=== PATIENT | male | born 1990 | race Caucasian/White ===

== ENCOUNTER 2017-02-08 21:44 | Emergency (ER) | payer OTHER ==
[2017-02-08] MEDS ORDERED: NS 1,000 ML IV ONE (22:04)
[2017-02-08] MEDS ORDERED: ONDANSETRON 4 MG/2 ML VIAL IVP ONE (22:04)
--- NOTE | 2017-02-08 22:04 | EDPHY ---
H & P Stated Complaint: feels disoriented, slight abd pain, nausea after eating mushrooms HPI/ROS: HPI CHIEF COMPLAINT: Nausea, abdominal cramping after eating mushrooms HISTORY OF PRESENT ILLNESS: This patient 27-year-old male, otherwise healthy, he presents emergency room after he ingested mushrooms from a [employer]. He states that he had a salad with mushrooms in it around 5 p.m. patient reports around 530 started getting nauseous felt a little disoriented and had some abdominal cramping. No vomiting no diarrhea no fever. Pain is abdomen is not intense. He denies diaphoresis denies hallucination denies being off balance. It is now close to 5 hours later and he is feeling better. Decided come the emergency room just to make sure he was not poisoned. He did bring mushrooms with him and there is a constellation of mushrooms various shapes sizes and appearances. I do not see any toxic mushroom. Patient is unsure if he even wash the mushrooms prior to eating them. Past Medical History: Asthma Past Surgical History: No significant surgical history Social History: Denies daily use drugs alcohol tobacco products. Family History: Noncontributory ROS REVIEW OF SYSTEMS: A comprehensive 10 point review of systems is otherwise negative aside from elements mentioned in the history of present illness. Exam Constitutional appears well nontoxic triage nursing summary reviewed, vital signs reviewed, awake/alert. Eyes normal conjunctivae and sclera, EOMI, PERRLA. HENT normal inspection, atraumatic, moist mucus membranes, no epistaxis, neck supple/ no meningismus, no raccoon eyes. Respiratory clear to auscultation bilaterally, normal breath sounds, no respiratory distress, no wheezing. Cardiovascular rate normal, regular rhythm, no murmur, no edema, distal pulses normal. Gastrointestinal soft, non-tender, no rebound, no guarding, normal bowel sounds, no distension, no pulsatile mass. Genitourinary no CVA tenderness. Musculoskeletal no midline vertebral tenderness, full range of motion, no calf swelling, no tenderness of extremities, no meningismus, good pulses, neurovascularly intact. Skin pink, warm, & dry, no rash, skin atraumatic. Neurologic awake, alert and oriented x 3, AAOx3, moves all 4 extremities equally, motor intact, sensory intact, CN II-XII intact, normal cerebellar, normal vision, normal speech. Psychiatric normal mood/affect. Heme/Lymph/Immune no lymphadenopathy. Differential Diagnosis: Includes but is not limited to in a particular order electrolyte disturbance, dehydration, food borne illness, toxic mushroom ingestion Medical Decision Making: This patient appears well nontoxic no acute distress not hallucinating is not diaphoretic and has stable vital signs plan for this patient will be IV establishment IV fluid bolus and Zofran check blood work and electrolytes and re-evaluate. Re-evaluation: 1246AM: This patient is requesting discharge. He tells me feels much better after IV fluids and Zofran. He has not had any vomiting here. His vital signs have been stable. His blood work is unremarkable. I do recommend he throws out the mushrooms and does not eat them. I did give him return precautions he understands return emergency room if develops any worsening symptoms this includes fever, vomiting, abdominal pain or questions or concerns. Source: Patient - Personal History Current Tetanus/Diphtheria Vaccine: Yes - Medical/Surgical History Hx Asthma: Yes Hx Chronic Respiratory Disease: No Hx Diabetes: No Hx Cardiac Disease: No Hx Renal Disease: No Hx Cirrhosis: No Hx Alcoholism: No Hx HIV/AIDS: No Hx Splenectomy or Spleen Trauma: No Other PMH: Asthma - Social History Smoking Status: Never smoked Constitutional: Initial Vital Signs Temperature (C) 37.3 C 02/08/17 21:47 Heart Rate 60 02/08/17 21:47 Respiratory Rate 16 02/08/17 21:47 Blood Pressure 146/110 H 02/08/17 21:47 O2 Sat (%) 96 02/08/17 21:47 O2 Delivery Mode Room Air Allergies/Adverse Reactions: No Known Allergies Allergy (Unverified 02/08/17 21:51) Home Medications: Medication Instructions Recorded Albuterol 5 mg/ml INH [Proventil] 2.5 mg IH PRN PRN 02/08/17 Montelukast Sodium 10 mg PO 02/08/17 Medical Decision Making - Data Points Laboratory Results: Laboratory Results 02/08/17 22:20 02/08/17 22:20 02/08/17 02/08/17 02/08/17 23:10 22:30 22:20 WBC RBC Hgb Hct MCV MCH MCHC RDW Plt Count MPV Neut % (Auto) Lymph % (Auto) [place] % (Auto) Eos % (Auto) Baso % (Auto) Nucleat RBC Rel Count Absolute Neuts (auto) Absolute Lymphs (auto) Absolute Monos (auto) Absolute Eos (auto) Absolute Basos (auto) Absolute Nucleated RBC Immature Gran % Immature Gran # PT INR APTT VBG Lactic Acid 0.8 mmol/L mmol/L (0.7-2.1) Sodium 137 mEq/L mEq/L (134-144) Potassium 3.9 mEq/L mEq/L (3.5-5.2) Chloride 99 mEq/L mEq/L (97-110) Carbon Dioxide 23 mEq/l mEq/l (22-31) Anion Gap 15 mEq/L mEq/L (8-16) BUN 14 mg/dL mg/dL (7-23) Creatinine 0.8 mg/dL mg/dL (0.7-1.3) Estimated GFR > 60 Glucose 86 mg/dL mg/dL (70-100) Calcium 10.3 mg/dL mg/dL (8.5-10.4) Total Bilirubin 0.7 mg/dL mg/dL (0.1-1.4) Conjugated Bilirubin 0.3 mg/dL mg/dL (0.0-0.5) Unconjugated Bilirubin 0.4 mg/dL mg/dL (0.0-1.1) AST 27 IU/L IU/L (17-59) ALT 42 IU/L IU/L (21-72) Alkaline Phosphatase 74 IU/L IU/L (38-126) Total Protein 8.8 g/dL H g/dL (6.3-8.2) Albumin 5.2 g/dL H g/dL (3.5-5.0) Lipase 40.0 IU/L IU/L (23-300) Urine Color PALE YELLOW Urine Appearance CLEAR Urine pH 7.0 (5.0-7.5) Ur Specific [place] 1.006 (1.002-1.030) Urine Protein NEGATIVE (NEGATIVE) Urine Ketones TRACE H (NEGATIVE) Urine Blood NEGATIVE (NEGATIVE) Urine Nitrate NEGATIVE (NEGATIVE) Urine Bilirubin NEGATIVE (NEGATIVE) Urine Urobilinogen NEGATIVE EU EU (0.2-1.0) Ur Leukocyte Esterase NEGATIVE (NEGATIVE) Urine Glucose NEGATIVE (NEGATIVE) 02/08/17 02/08/17 22:20 22:20 WBC 7.05 10^3/uL 10^3/uL (3.80-9.50) RBC 4.99 10^6/uL 10^6/uL (4.40-6.38) Hgb 15.4 g/dL g/dL (13.7-17.5) Hct 44.3 % % (40.0-51.0) MCV 88.8 fL fL (81.5-99.8) MCH 30.9 pg pg (27.9-34.1) MCHC 34.8 g/dL g/dL (32.4-36.7) RDW 11.9 % % (11.5-15.2) Plt Count 298 10^3/uL 10^3/uL (150-400) MPV 10.7 fL fL (8.7-11.7) Neut % (Auto) 59.1 % % (39.3-74.2) Lymph % (Auto) 30.6 % % (15.0-45.0) [place] % (Auto) 7.8 % % (4.5-13.0) Eos % (Auto) 1.8 % % (0.6-7.6) Baso % (Auto) 0.4 % % (0.3-1.7) Nucleat RBC Rel Count 0.0 % % (0.0-0.2) Absolute Neuts (auto) 4.16 10^3/uL 10^3/uL (1.70-6.50) Absolute Lymphs (auto) 2.16 10^3/uL 10^3/uL (1.00-3.00) Absolute Monos (auto) 0.55 10^3/uL 10^3/uL (0.30-0.80) Absolute Eos (auto) 0.13 10^3/uL 10^3/uL (0.03-0.40) Absolute Basos (auto) 0.03 10^3/uL 10^3/uL (0.02-0.10) Absolute Nucleated RBC 0.00 10^3/uL 10^3/uL (0-0.01) Immature Gran % 0.3 % % (0.0-1.1) Immature Gran # 0.02 10^3/uL 10^3/uL (0.00-0.10) PT 13.4 SEC SEC (12.0-15.0) INR 1.03 (0.83-1.16) APTT 29.8 SEC SEC (23.0-38.0) VBG Lactic Acid Sodium Potassium Chloride Carbon Dioxide Anion Gap BUN Creatinine Estimated GFR Glucose Calcium Total Bilirubin Conjugated Bilirubin Unconjugated Bilirubin AST ALT Alkaline Phosphatase Total Protein Albumin Lipase Urine Color Urine Appearance Urine pH Ur Specific [place] Urine Protein Urine Ketones Urine Blood Urine Nitrate Urine Bilirubin Urine Urobilinogen Ur Leukocyte Esterase Urine Glucose Medications Given: Discontinued Medications Sodium Chloride (Ns) 1,000 mls @ 0 mls/hr IV EDNOW ONE; Wide Open PRN Reason: Protocol Stop: 02/08/17 22:05 Last Admin: 02/08/17 22:37 Dose: 1,000 mls Ondansetron HCl (Zofran) 4 mg IVP EDNOW ONE Stop: 02/08/17 22:05 Last Admin: 02/08/17 22:37 Dose: 4 mg Departure - Departure Disposition: Home, Routine, Self-Care Clinical Impression: Nausea Condition: Good Instructions: Food Poisoning (ED) Additional Instructions: 1. [place] diet for the next 24-48 hours. 2. Return emergency room if you have any worsening symptoms includes worsening abdominal pain, fever, vomiting you do not feel well. Stay well-hydrated drink lots of fluids. Referrals: NONE *PRIMARY CARE P,. [Primary Care Provider] - As per Instructions
[2017-02-08 22:30] LABS: % IMMATURE GRANULYOCYTES 0.3 % (0.0-1.1); ABSOLUTE IMMATURE GRANULOCYTES 0.02 10^3/uL (0.00-0.10); ADD DIFF? NO; ADD MORPH? NO; ADD SCAN? NO; ATYPICAL LYMPHOCYTE FLAG 10 (0-99); FRAGMENT RBC FLAG 0 (0-99); HEMATOCRIT 44.3 % (40.0-51.0); HEMOGLOBIN 15.4 g/dL (13.7-17.5); LEFT SHIFT FLG 0 (0-99); LIPEMIA HEMOLYSIS FLAG 90 (0-99); MEAN CELL HEMOGLOBIN 30.9 pg (27.9-34.1); MEAN CELL HEMOGLOBIN CONCENTR. 34.8 g/dL (32.4-36.7); MEAN CELL VOLUME 88.8 fL (81.5-99.8); MEAN PLATELET VOLUME 10.7 fL (8.7-11.7); PLATELET CLUMPS FLAG 20 (0-99); PLATELET COUNT 298 10^3/uL (150-400); RED BLOOD CELL COUNT 4.99 10^6/uL (4.40-6.38); RED CELL DISTRIBUTION WIDTH 11.9 % (11.5-15.2)
[2017-02-08 22:39] LABS: INR 1.03 (0.83-1.16); PROTIME(PATIENT) 13.4 SEC (12.0-15.0)
[2017-02-08 22:40] LABS: APTT 29.8 SEC (23.0-38.0)
[2017-02-08 22:42] LABS: ALANINE AMINOTRANSFERASE 42 IU/L (21-72); ALBUMIN 5.2 g/dL (3.5-5.0); ALKALINE PHOSPHATASE 74 IU/L (38-126); ANION GAP 15 mEq/L (8-16); ASPARTATE AMINOTRANSFERASE 27 IU/L (17-59); BILIRUBIN,TOTAL 0.7 mg/dL (0.1-1.4); BILIRUBIN-CONJUGATED 0.3 mg/dL (0.0-0.5); BILIRUBIN-UNCONJUGATED 0.4 mg/dL (0.0-1.1); CALCIUM 10.3 mg/dL (8.5-10.4); CARBON DIOXIDE 23 mEq/l (22-31); CHLORIDE 99 mEq/L (97-110); CREATININE 0.8 mg/dL (0.7-1.3); GLOMERULAR FILTRATION RATE > 60; GLUCOSE 86 mg/dL (70-100); POTASSIUM 3.9 mEq/L (3.5-5.2); SODIUM 137 mEq/L (134-144); TOTAL PROTEIN 8.8 g/dL (6.3-8.2)
[2017-02-08 22:57] VITALS: RESP 18
[2017-02-08 23:22] LABS: COLOR PALE YELLOW; LEUKOCYTE ESTERASE,URINE NEGATIVE (NEGATIVE); NITRITE,URINE NEGATIVE (NEGATIVE)
[2017-02-09 01:33] VITALS: BP 141/76; PULSE 61; TEMP 98.2; O2SAT 97
== END 2017-02-09 01:00 | disposition home or self-care (01) ==
DX: R11.0 Nausea (principal); J45.909 Unspecified asthma, uncomplicated; E86.9 Volume depletion, unspecified
CPT/HCPCS: 96374; J2405

== ENCOUNTER → 2017-04-18 | Outpatient (CLI) | payer OTHER | LOC: BMCIMAGING 09:18 | PROVIDERS: ATTEND Internal Medicine | DX: M54.42 Lumbago with sciatica, left side (principal); R93.7 Abnormal findings on diagnostic imaging of other parts of musculoskeletal system ==

== ENCOUNTER 2017-11-22 09:05 | Emergency (ER) | payer OTHER ==
[2017-11-22 09:13] VITALS: BP 151/81
[2017-11-22] MEDS ORDERED: TDAP ADULT 0.5 ML INJ (BOOSTRIX) IM ONE (09:21)
[2017-11-22] MEDS ORDERED: IBUPROFEN 600 MG TAB PO ONE (09:22)
[2017-11-22] MEDS ORDERED: ACETAMINOPHEN 325 MG TAB PO ONE (09:22)
--- NOTE | 2017-11-22 09:26 | EDPHY ---
H & P Time Seen by Provider: 11/22/17 09:05 HPI/ROS: CHIEF COMPLAINT: Dog bite HISTORY OF PRESENT ILLNESS: Patient was walking his girlfriend's alan when another person's pit bull ended up biting him in both left hand and the right leg. Brought in by EMS. Complaint pain in the area of the left hand in the right leg but no weakness or numbness distally. No foreign body sensation. No other injuries. REVIEW OF SYSTEMS: Eye: No visual symptoms ENT: Reason congestion and nonproductive cough, stayed at home from work yesterday. Cardiac: no chest pain or syncope Pulmonary: No shortness of breath Abdomen: No abdominal pain Musculoskeletal: HPI Skin: HPI Neuro: HPI no weakness or numbness Constitutional: no fever : no urinary symptoms A comprehensive 10 point review of systems is otherwise negative aside from elements mentioned in the history of present illness. PAST MEDICAL HISTORY: Asthma, depression, tetanus not up-to-date Social history: Nonsmoker, works in [employer], here with his girlfriend General Appearance: Alert and conversant, cooperative. Eyes: No scleral icterus. ENT, Mouth: Normal mucous membranes. Respiratory: Normal respiratory effort, breath sounds equal, lungs are clear to auscultation. Cardiovascular: Regular rate and rhythm. Gastrointestinal: Abdomen is soft and non tender. Neurological: Alert, face symmetric, normal motor and sensory in extremities. Skin: Multiple puncture wounds on the left hand including small ring middle and index fingers as well as dorsum of hand over the 1st and 2nd metacarpals. 8 cm laceration full thickness into the muscle on the right medial mid calf. No tendon laceration is visualized and no foreign body found on direct exploration. Musculoskeletal: No bony tenderness. Full range of motion of the left hand. Full extensor and flexor tendon function of the left hand, normal sensation, normal capillary refill. Normal range of motion of the right foot including Achilles function, normal dorsalis pedis pulse and motor and sensory. Psychiatric: Not agitated. Emergency Department course/MDM: X-ray of the left hand, Tylenol and ibuprofen for pain, standard wound care and tetanus updated. Right calf laceration I think is high risk for primary closure. Anesthetized with 20 mL of 0.5% bupivacaine with epinephrine, copiously irrigated, dressing placed and placed on oral Augmentin, will return in 72 hr for evaluation for possibility of delayed primary closure, patient consented. Smoking Status: Never smoked Constitutional: Initial Vital Signs Temperature (C) 37.1 C 11/22/17 09:05 Heart Rate 92 11/22/17 09:05 Respiratory Rate 16 11/22/17 09:05 Blood Pressure 151/81 H 11/22/17 09:05 O2 Sat (%) 96 11/22/17 09:05 O2 Delivery Mode Room Air Allergies/Adverse Reactions: No Known Allergies Allergy (Unverified 11/22/17 09:11) Home Medications: Medication Instructions Recorded Albuterol 5 mg/ml INH [Proventil] 2.5 mg IH PRN PRN 02/08/17 Montelukast Sodium 10 mg PO 02/08/17 Amoxicillin/Clavulanate Pot 875 mg PO BID #20 tab 11/22/17 [Augmentin 875 mg tab] Sertraline HCl [Zoloft 50mg (*)] 11/22/17 Medical Decision Making - Diagnostics Imaging Results: Imaging Impressions Hand X-Ray 11/22/17 09:22 Impression: There is no acute osseous abnormality, or radiopaque foreign body. Left hand x-ray personally interpreted is negative. Specifically no foreign body and no gas in joints. Imaging: I viewed and interpreted images myself - Data Points Medications Given: Discontinued Medications Acetaminophen (Tylenol) 650 mg PO EDNOW ONE Stop: 11/22/17 09:23 Last Admin: 11/22/17 09:34 Dose: 650 mg Amoxicillin/Clavulanate Potassium (Augmentin 875mg) 875 mg PO EDNOW ONE PRN Reason: Protocol Stop: 11/22/17 09:28 Last Admin: 11/22/17 09:34 Dose: 875 mg Diphtheria/Tetanus/Acell Pertussis (Boostrix) 0.5 ml IM .ONCE ONE Stop: 11/22/17 09:22 Last Admin: 11/22/17 09:34 Dose: 0.5 ml Ibuprofen (Motrin) 600 mg PO EDNOW ONE Stop: 11/22/17 09:23 Last Admin: 11/22/17 09:34 Dose: 600 mg Departure - Departure Disposition: Home, Routine, Self-Care Clinical Impression: Laceration of right calf without complication Qualifiers: Encounter type: initial encounter Qualified Code(s): S81.811A - Laceration without foreign body, right lower leg, initial encounter Dog bite of multiple sites of left hand and fingers Qualifiers: Encounter type: initial encounter Qualified Code(s): S61.452A - Open bite of left hand, initial encounter Condition: Good Instructions: Animal Bite (ED), Laceration (ED) Additional Instructions: Return to the emergency department in 72 hr on Monday morning for evaluation and possible delayed primary closure of your right leg. Referrals: Patient,NotPresent [Unknown] - As per Instructions Prescriptions: Amoxicillin/Clavulanate Pot [Augmentin 875 mg tab] 875 mg PO BID #20 tab
[2017-11-22] MEDS ORDERED: AMOXICILLIN/CLAVULANATE POT 875/125 MG TAB PO ONE (09:27)
== END 2017-11-22 10:15 | disposition home or self-care (01) ==
LOC: EDUNIT#
DX: S61.452A Open bite of left hand, initial encounter (principal); S81.811A Laceration without foreign body, right lower leg, initial encounter; J45.909 Unspecified asthma, uncomplicated; Z23 Encounter for immunization; W54.0XXA Bitten by dog, initial encounter; Y99.8 Other external cause status; Y93.01 Activity, walking, marching and hiking

== ENCOUNTER 2017-11-25 11:13 | Emergency (ER) | payer OTHER ==
--- NOTE | 2017-11-25 12:24 | EDPHY ---
H & P Stated Complaint: returns for wound closure leg dog bite Time Seen by Provider: 11/25/17 12:20 HPI/ROS: CHIEF COMPLAINT: Return for delayed primary closure HISTORY OF PRESENT ILLNESS: 27-year-old immunocompetent male seen the ER 3 days ago post dog bite to the right medial calf which poin is recommend return today for delayed primary closure. He is able to bear weight, notes no erythema , no fetid odor no discharge. No footdrop PHYSICAL EXAM (Prior to examination, patient consented to physical exam, hands were washed and my usual and customary physical exam procedures followed) 1) GENERAL: Well-developed, well-nourished, alert and oriented. Appears to be in no acute distress. 2) HEAD: Normocephalic 3) HEENT: sclera anicteric 4) LUNGS: Breathing comfortably. 5) SKIN: Right medial calf laceration measuring 8 cm with muscle fascia involvement. No muscle belly involvement. 6) MUSCULOSKELETAL: Supination pronation dorsiflexion plantar flexion both actively and passively are present and able to be held against resistance with no deficits. No lymphangitic streaking. No foreign bodies. No signs of infection. No fetid odor. 7) NEUROLOGIC: Full sensation distally - Medical/Surgical History Hx Asthma: Yes Hx Chronic Respiratory Disease: No Hx Diabetes: No Hx Cardiac Disease: No Hx Renal Disease: No Hx Cirrhosis: No Hx Alcoholism: No Hx HIV/AIDS: No Hx Splenectomy or Spleen Trauma: No Other PMH: Asthma, depression - Social History Smoking Status: Never smoked Constitutional: Initial Vital Signs Temperature (C) 36.8 C 11/25/17 11:47 Heart Rate 68 11/25/17 11:47 Respiratory Rate 16 11/25/17 11:47 Blood Pressure 117/71 11/25/17 11:47 O2 Sat (%) 97 11/25/17 11:47 Allergies/Adverse Reactions: No Known Allergies Allergy (Unverified 11/22/17 09:11) Home Medications: Medication Instructions Recorded Albuterol 5 mg/ml INH [Proventil] 2.5 mg IH PRN PRN 02/08/17 Montelukast Sodium 10 mg PO 02/08/17 Amoxicillin/Clavulanate Pot 875 mg PO BID #20 tab 11/22/17 [Augmentin 875 mg tab] Sertraline HCl [Zoloft 50mg (*)] 11/22/17 Medical Decision Making Procedures: Procedure: Laceration repair. I explained the indications, risks and benefits for both laceration repair and anesthetic administration. Verbal consent was obtained from the patient. The laceration on the right medial calf was anesthetized using 0.5% bupivicaine with epinephrine. After anesthetic administered the patient was observed for a period of time and had no apparent adverse effects. The wound was cleaned, prepped, draped in normal sterile fashion and explored to its base. No foreign body seen, no foreign bodies palpated. Muscle fascia laceration noted closed with 6 horizontal mattress 3 0 Vicryl sutures. Skin closed with 13 simple interrupted 4 0 Ethilon sutures.. The wound repair was complex. The procedure was performed by myself. Patient has been informed that scarring will occur, although efforts have been made to minimize this. ED Course/Re-evaluation: Old medical records reviewed. Not infected. Will proceed with delayed primary closure. Care of patient under supervision of secondary supervising physician Dr Mccann . Departure - Departure Disposition: Home, Routine, Self-Care Clinical Impression: Laceration of right leg excluding thigh Qualifiers: Encounter type: subsequent encounter Qualified Code(s): S81.811D - Laceration without foreign body, right lower leg, subsequent encounter Dog bite of right lower leg Qualifiers: Encounter type: subsequent encounter Qualified Code(s): S81.851D - Open bite, right lower leg, subsequent encounter Condition: Good Instructions: Animal Bite (ED), Laceration (ED) Additional Instructions: Keep taking your Augmentin medication until finished Referrals: Return, to the ER in 14 days for suture removal [Other] - 12/09/17
[2017-11-25 13:31] VITALS: BP 136/100
== END 2017-11-25 13:31 | disposition home or self-care (01) ==
PROC: 0HQKXZZ Repair Right Lower Leg Skin, External Approach (ICD-10-PCS; principal; 2017-11-25)
DX: S81.811D Laceration without foreign body, right lower leg, subsequent encounter (principal); J45.909 Unspecified asthma, uncomplicated; W54.0XXD Bitten by dog, subsequent encounter